=== PATIENT | female | born 1960 | race Two or more races ===

== ENCOUNTER 2019-08-10 11:34 | Outpatient (CLI) | payer OTHER | END 2019-08-10 12:12 | disposition home or self-care (01) | LOC: NUCLEAR 11:34 | PROVIDERS: ATTEND Internal Medicine Sports Medicine | DX: C73 Malignant neoplasm of thyroid gland (principal) | CPT/HCPCS: 79005; A9517 ==

== ENCOUNTER 2019-08-18 11:28 | Outpatient (CLI) | payer OTHER | END 2019-08-18 14:22 | disposition home or self-care (01) | LOC: NUCLEAR 11:28 | PROVIDERS: ATTEND Internal Medicine Sports Medicine | DX: C73 Malignant neoplasm of thyroid gland (principal) ==

== ENCOUNTER 2020-09-07 12:52 | Outpatient (CLI) | payer OTHER | END 2020-09-07 12:53 | disposition home or self-care (01) | LOC: NUCLEAR 12:52 | PROVIDERS: ATTEND Internal Medicine Sports Medicine | DX: C73 Malignant neoplasm of thyroid gland (principal); E89.0 Postprocedural hypothyroidism | CPT/HCPCS: 79005; A9517 ==

== ENCOUNTER 2020-09-21 08:00 | Outpatient (CLI) | payer OTHER | END 2020-09-21 08:30 | disposition home or self-care (01) | LOC: PPH VACUNA 08:00 | DX: Z23 Encounter for immunization (principal) ==

== ENCOUNTER 2020-10-08 08:00 | Outpatient (CLI) | payer OTHER | END 2020-10-08 08:30 | disposition home or self-care (01) | LOC: PPH VACUNA 08:00 | DX: Z23 Encounter for immunization (principal) ==

== ENCOUNTER 2021-02-28 08:00 | Outpatient (CLI) | payer OTHER | END 2021-02-28 08:30 | disposition home or self-care (01) | LOC: PPH VACUNA 08:00 | PROVIDERS: ATTEND Emergency Medicine Pediatric Emergency Medicine | DX: Z23 Encounter for immunization (principal) ==

== ENCOUNTER 2021-07-04 08:00 | Outpatient (CLI) | payer OTHER | END 2021-07-04 08:30 | disposition home or self-care (01) | LOC: PPH VACUNA 08:00 | PROVIDERS: ATTEND Emergency Medicine Pediatric Emergency Medicine | DX: Z23 Encounter for immunization (principal) ==

== ENCOUNTER 2022-03-26 10:38 | Outpatient (CLI) | payer OTHER | END 2022-03-26 10:48 | disposition home or self-care (01) | LOC: PPH VACUNA 10:38 | PROVIDERS: ATTEND Emergency Medicine Pediatric Emergency Medicine | DX: Z23 Encounter for immunization (principal) ==